=== PATIENT | female | born 1980 | race Caucasian/White ===

== ENCOUNTER 2020-01-16 11:06 | Emergency (ER) | payer MEDICAID ==
[~2020-01-16] VITALS: Ht 172.7 cm; Wt 75.0 kg
[2020-01-16 11:18] VITALS: BP 176/99
== END 2020-01-16 12:36 | disposition home or self-care (01) ==
LOC: ER 11:06
DX: H11.31 Conjunctival hemorrhage, right eye (principal)
CPT/HCPCS: 99281